=== PATIENT | male | born 1960 | race Caucasian/White ===

== ENCOUNTER → 2017-01-18 | Outpatient (CLI) | payer OTHER ==
--- NOTE | ~2017-01-18 | CT71 ---
[facility] A Service of [facility] RADIOLOGY TEXT RESULTS PATIENT: THOMAS GREENE LOCATION: [facility] : 64 UNIT #: [id number] AGE: [address]: KIKE GOLDSMITH APRN SEX: M ORDER DR: [id number] [facility] [address] [place], [place] [address] [id number] O MR#: [id number] #: [id number] NAME: THOMAS GREENE : 1960 SEX: M STUDY DATE/TIME: 01/18/2017 11:22 UNIT: [facility] ROOM: STUDY DESCRIPTION: CT Head Wo Contrast Attending Physician: Carlo Leonard Referring Physician: Carlo Leonard Ordering Physician: Latesha Not Listed Primary Care Physician: Carlo Leonard MEDICAL IMAGING REPORT This report is preliminary unless electronic signature is present EXAM Head CT, no contrast, 01/18/2017. PROCEDURE Routine unenhanced head CT. This CT exam was performed with one or more of the following radiation dose reduction techniques: automatic exposure control, adjustment of mA and/or kV according to patient size, and iterative reconstruction. COMPARISON None CLINICAL HISTORY Headaches since May, progressively worsening and increasing in frequency. FINDINGS Axial noncontrast images were obtained from the skull base to the vertex. Ventricular size and configuration are normal. There is no evidence of acute infarct or hemorrhage. There are no extra-axial fluid collections. No mass lesion or mass effect is seen. There are no skull fractures. IMPRESSION Normal noncontrast head CT. Dictated by... Chni Perez M.D. THIS IS AN ELECTRONICALLY VERIFIED REPORT Chin Perez M.D. at 01/19/2017 4:59 PM [facility] A Service [facility] RADIOLOGY TEXT RESULTS PATIENT: THOMAS GREENE LOCATION: [facility] : 64 UNIT #: [id number] AGE: [address]: KIKE GOLDSMITH APRN SEX: M ORDER DR: Aj TD: 01/18/2017 17:44 JOB #: [id number] MEDICAL IMAGING REPORT Page 1 of 1 COPY
== END | disposition home or self-care (01) ==
LOC: CCAT 10:04
DX: R51 Headache (principal)
CPT/HCPCS: 70450